=== PATIENT | female | born 1995 | race Caucasian/White ===

== ENCOUNTER 2021-11-06 11:02 | Outpatient (CLI) | payer OTHER, SELFPAY ==
[2021-11-06] VITALS (12 sets, daily range): BP systolic 122–150; BP diastolic 83–119; PULSE 89–115; TEMP 37
[2021-11-06 11:54] LABS: Basophils Absolute Auto 0.1 K/mm3 (0.0-0.1); Basophils Percent Auto 0.5 % (0.2-1.2); Eosinophils Absolute Auto 0.1 K/mm3 (0-0.3); Eosinophils Percent Auto 0.8 % (0-4.4); Hematocrit 39.4 % (37.0-47.0); Hemoglobin 13.2 g/dL (12.0-15.0); Immature Granulocyte Absolute 0.11 K/mm3 (0.00-0.031); Immature Granulocyte Percent A 0.9 % (0-0.5); Lymphocytes Absolute Auto 3.53 K/mm3 (0.9-3.2); Mean Corpuscular HGB Conc 33.5 g/dl (32-36); Mean Corpuscular Hemoglobin 30.8 pg (26-34); Mean Corpuscular Volume 91.8 fl (80-100); Mean Platelet Volume 11.6 fl (7.4-10.4); Monocytes Absolute Auto 0.7 K/mm3 (0.1-0.6); Monocytes Percent Auto 5.4 % (2.6-8.5); Neutrophils Absolute Auto 7.7 K/mm3 (1.3-6.7); Neutrophils Percent Auto 63.4 % (45.5-73.1); Platelet Count Result 257 k/mm3 (150-375); Red Blood Count 4.29 M/mm3 (4.2-5.4); Red Cell Distribution Width 13.2 % (11.5-14.5); White Blood Count 12.2 K/mm3 (4.5-10.0)
[2021-11-06 12:03] LABS: Appearance Urine Slightly Cloudy (Clear); Bilirubin Urine Negative (Negative); Blood Urine 3+ (Negative); Color Urine Yellow (Yellow); Glucose Urine UA Negative (Negative); Ketones Urine Negative (Negative); Leukocyte Esterase Ur 2+ LEU/UL (NEGATIVE); Nitrate Urine Negative (Negative); Protein Urine 1+ mg/dL (Negative); Urobilinogen Urine 0.2 mg/dL (<2.0)
[2021-11-06 12:04] LABS: Alanine Aminotransferase 12 U/L (6-35); Albumin Level 3.4 g/dL (3.5-5.1); Alkaline Phosphatase 165 U/L (38-126); Anion Gap 7 mmol/L (8-16); Aspartate Amino Transferase 19 U/L (14-36); Bilirubin,Total 0.5 mg/dL (0.2-1.3); Blood Urea Nitrogen 14 mg/dL (7-17); Calcium 8.9 mg/dL (8.4-10.2); Carbon Dioxide 16 mmol/L (22-30); Chloride 107 mmol/L (98-107); Estimated Glomerular Filt Rate > 60; Glucose 80 mg/dL (65-110); Potassium 4.1 mmol/L (3.4-5.0); Sodium 130 mmol/L (137-145); Uric Acid 7.1 mg/dL (2.5-7.5)
[2021-11-06 12:06] LABS: Creatinine Urine 151.9 mg/dL; Total Protein Urine Random 15 mg/dL
[2021-11-06 12:10] LABS: Mucus Urine Rare /lpf; Squamous Epithelial Cell Urine Many /hpf (Few); WBC Urine 51-75 /hpf (0-3)
[2021-11-06 12:11] LABS: Add Urine Microscopic? YES
[2021-11-06] MEDS: LABETALOL HCL 100 MG TABLET 200 MG PO (12:31)
== END 2021-11-06 14:20 | disposition home or self-care (01) ==
LOC: ANHOBOP 11:11 → ANHOBPP 11:16
PROVIDERS: PCP Family Medicine; Visit Provider Obstetrics & Gynecology
DX: O13.9 Gestational [pregnancy-induced] hypertension without significant proteinuria, unspecified trimester (principal); Z3A.00 Weeks of gestation of pregnancy not specified
CPT/HCPCS: 36415; 59025; 80053; 81001; 82570; 84156; 84550; 85025; 87086; 87088; 99199; A9270

== ENCOUNTER 2021-11-11 11:39 | Outpatient (RCR) | payer OTHER, SELFPAY ==
[2021-11-08 11:59] VITALS: BP 138/98; PULSE 80
--- NOTE | 2021-11-08 11:59 | PC.NURSE ---
Dr. Flor Jensen was informed of BP's 139/83 and 138/98. Pt denies headache, visual disturbance, epigastric/RUQ pain. 1+ pitting edema in feet and lower legs. DTR's 2+ and no clonus. Pt taking Labetalol 200 mg PO BID- last dose at 0930. Order received to have pt take an additional dose of Labetalol 200 mg as soon as she gets home and to then take every 8 hrs instead of q 12 hrs. Pt scheduled for induction of labor on 11/13/21 when she is 37 wks. Pt informed of these instructions. Pt given signs and symptoms of preeclampsia to watch for and to return to L&D unit if any should occur. Pt verbalizes understanding. Pt is going directly home and will take an additional 200 mg of Labetalol.
--- NOTE | ~2021-11-11 | US_ITS ---
EXAMINATION: US OB limited w BPP DATE: 11/11/2021 13:36 INDICATION: Nonreactive nonstress test, third trimester TECHNIQUE: Real-time pelvic ultrasound was performed. The interpreting radiologist was not present fo r the study. COMPARISON: None. FINDINGS: There is a single living fetus in vertex presentation. The placenta is posterior. heart rate is 130 beats per minute (bpm). The amniotic fluid index is 14.9 cm which is normal (normal range: 7.7 c m to 24.9 cm). Biophysical profile performed by the technologist: breathing (30 sec sustained breathing in 30 minutes): 2 out of 2 movement (3 gross body movements in 30 minutes): 2 out of 2 tone (one episode of ujwsvuz-wkmqahbpb-xwwnzst limb movement): 2 out of 2 Amniotic fluid pocket (2 cm): 2 out of 2 Total score: 8 out of 8 IMPRESSION: 1. Single living fetus in vertex presentation. 2. Biophysical profile 8 out of 8. 3. Normal amniotic fluid index. Reviewed, dictated and finalized at location A.
--- NOTE | 2021-11-11 12:56 | PC.NURSE ---
Dr. Flor Jensen updated on the pt tracing. Order received for pt to have BPP, GRETCHEN and call results.
[2021-11-11 13:10] VITALS: BP 136/89; PULSE 78
--- NOTE | 2021-11-11 13:42 | PC.NURSE ---
Dr. Flor Jensen updated on the pt. BPP and GRETCHEN. Pt okay discharge per Flor Jensen. Pt scheduled for induction on thu.
== END 2021-12-03 10:50 | disposition home or self-care (01) ==
LOC: ANHOBOP 11:39
PROVIDERS: PCP Family Medicine; Visit Provider Obstetrics & Gynecology
DX: O26.899 Other specified pregnancy related conditions, unspecified trimester (principal); R03.0 Elevated blood-pressure reading, without diagnosis of hypertension; Z3A.00 Weeks of gestation of pregnancy not specified
CPT/HCPCS: 59025; 76815; 76819

== ENCOUNTER 2021-11-13 06:03 | Inpatient (IN) | payer OTHER, SELFPAY ==
[2021-11-13] VITALS (199 sets, daily range): BP systolic 113–175; BP diastolic 61–117; PULSE 55–133; TEMP 36.1–36.9; O2SAT 97–100; BMI 33.1
--- NOTE | 2021-11-13 06:31 | PM.IMHP ---
H&P: HPI History of Present Illness Date/Time: 11/13/21 06:31 Chief Complaint: elevated blood pressures at 37 weeks Narrative: this is a 26-year-old female admitted at 37 weeks gestation for induction of labor secondary to worsening blood pressures. PIH labs were within normal limits. She has no headaches or blurred vision however her blood pressures have been steadily climbing. Ten week ultrasound confirmed dates PMFSH Family History Family History Mother History of open heart surgery Heart disease Heart attack High cholesterol Hypertension Father High cholesterol Hypertension Grandparent History of open heart surgery Heart attack Diabetes mellitus Stented coronary artery Social History Social History Substance use: former Spiritual care concerns: No Meds Home Medications and Allergies Home Medications Medication Instructions Recorded Confirmed Type labetalol 200 mg tablet 200 mg PO Q12H #28 tabs 11/06/21 Rx Allergies Allergy/AdvReac Type Severity Reaction Status Date / Time Sulfa (Sulfonamide Allergy Hives Verified 11/12/21 15:57 Antibiotics) Exam Const: General: cooperative and healthy appearing Nutritional Appearance: average body habitus Orientation/consciousness: oriented to person and oriented to time Resp: Effort & Inspection: normal respiratory effort GI: Inspection: normal to inspection : External Female Exam: normal external appearance Speculum Exam - Vagina: normal appearance of the vagina Speculum Exam - Cervix: normal appearance of the cervix Bimanual exam- vagina & uterus: enlarged ( gravid soft uterus. heart tones reassuring) Assessment and Plan Assessment and plan (1) Term : Code(s): Z34.90 - Encounter for supervision of normal , unspecified, unspecified trimester Status: Acute (2) Gestational hypertension: Code(s): O13.9 - Gestational [-induced] hypertension without significant proteinuria, unspecified trimester Status: Acute Plan medical induction of labor. Spontaneous vaginal delivery is expected. She has an epidural candidate
--- NOTE | 2021-11-13 06:54 | LDADM ---
This patient, Taylor Hale, was admitted to Labor/Delivery/Recovery 109 on 11/13/21 at 06:03. Plans for labor, pain management and were discussed with patient. Patient/family oriented to hospital policies and general routines including ID bracelet, bed and alarms, visiting hours, pain management, procedures, bathroom and other care routines, personal items, smoking policy, room service/diet and guest tray routines, security routines, and visiting hours. Patient/Family are encouraged to report perceived risks to care and to ask questions if they do not understand what they are told or what they should do. See OBIX for further documentation.
[2021-11-13 07:06] LABS: Basophils Absolute Auto 0.1 K/mm3 (0.0-0.1); Basophils Percent Auto 0.5 % (0.2-1.2); Eosinophils Absolute Auto 0.1 K/mm3 (0-0.3); Eosinophils Percent Auto 1.2 % (0-4.4); Hematocrit 36.6 % (37.0-47.0); Hemoglobin 12.2 g/dL (12.0-15.0); Immature Granulocyte Absolute 0.13 K/mm3 (0.00-0.031); Immature Granulocyte Percent A 1.2 % (0-0.5); Lymphocytes Absolute Auto 3.36 K/mm3 (0.9-3.2); Lymphocytes Percent Auto 30.2 % (18.3-44.2); Mean Corpuscular HGB Conc 33.3 g/dl (32-36); Mean Corpuscular Hemoglobin 31.3 pg (26-34); Mean Corpuscular Volume 93.8 fl (80-100); Mean Platelet Volume 11.9 fl (7.4-10.4); Monocytes Absolute Auto 0.6 K/mm3 (0.1-0.6); Monocytes Percent Auto 5.1 % (2.6-8.5); Neutrophils Absolute Auto 6.9 K/mm3 (1.3-6.7); Neutrophils Percent Auto 61.8 % (45.5-73.1); Platelet Count Result 233 k/mm3 (150-375); Red Cell Distribution Width 13.4 % (11.5-14.5); White Blood Count 11.1 K/mm3 (4.5-10.0)
[2021-11-13 07:17] LABS: Alanine Aminotransferase 12 U/L (6-35); Albumin Level 3.4 g/dL (3.5-5.1); Alkaline Phosphatase 157 U/L (38-126); Anion Gap 6 mmol/L (8-16); Aspartate Amino Transferase 20 U/L (14-36); Bilirubin,Total 0.2 mg/dL (0.2-1.3); Blood Urea Nitrogen 15 mg/dL (7-17); Calcium 8.6 mg/dL (8.4-10.2); Carbon Dioxide 18 mmol/L (22-30); Chloride 109 mmol/L (98-107); Estimated CRCL calculation 84 ml/min; Estimated Glomerular Filt Rate > 60; Glucose 87 mg/dL (65-110); Potassium 3.8 mmol/L (3.4-5.0); Sodium 133 mmol/L (137-145)
[2021-11-13] MEDS: LACTATED RINGERS 1,000 ML 125 ML IV CONT ×4 (07:20→23:21)
[2021-11-13] MEDS: OXYTOCIN 30 UNITS/NS 500 ML 30 UNITS/500 ML BAG 4 UNITS IV CONT (08:00)
[2021-11-13] MEDS: LABETALOL HCL 100 MG TABLET PO (08:27)
--- NOTE | 2021-11-13 11:31 | PM.OBPNLAB ---
Pain Control Date/time seen: 11/13/21 11:31 Pain control: tolerating well and epidural Comments: bp better Pelvic Exam Dilation (cm): 3 Effacement (%): 90 station: -2 Amniotic membrane status: Ruptured Contractions Monitor mode: Internal Contraction frequency: 3
--- NOTE | 2021-11-13 16:01 | PM.OBPNLAB ---
Pain Control Date/time seen: 11/13/21 16:01 Pain control: tolerating well and epidural Pelvic Exam Dilation (cm): 4 Effacement (%): 90 station: -2 Amniotic membrane status: Ruptured Contractions Monitor mode: Internal Contraction frequency: 3
[2021-11-13] MEDS: LABETALOL HCL 100 MG TABLET 300 MG PO (17:57)
[2021-11-13] MEDS: DEXTROSE 5%/LACTATED RINGERS 1,000 ML 100 ML IV CONT (23:55)
[2021-11-14] VITALS (89 sets, daily range): BP systolic 130–173; BP diastolic 81–101; PULSE 76–135; RESP 16–18; TEMP 36.2–37.3; O2SAT 94–100
--- NOTE | 2021-11-14 02:16 | PM.OBPNLAB ---
Pain Control Date/time seen: 11/14/21 02:16 Comments: The patient has pushed for 2 5hours with no change. Variability is decreased she is offered low-transverse section Pelvic Exam Dilation (cm): 10 Effacement (%): 90 station: -2 Amniotic membrane status: Ruptured Contractions Monitor mode: Internal Contraction frequency: 3
[2021-11-14] MEDS: ceFAZolin 2 GM/D5W 50 ML 2 GM/50 ML BAG IVPB (02:28)
--- NOTE | 2021-11-14 02:35 | WPDANESEPP ---
Anes - Eval Pre Procedure Procedure: Operation Date: 11/14/21 02:30 Proposed Procedures p Section - Hoang Jensen MD Date/Time: 11/14/21 02:35 Surgeon: armando jensen Pre Op Diagnosis: iol Patient Data Age: 26 Gender: F Height: 1.52 m Weight: 77 kg Last Vital Signs Temp 36.8 C 11/13/21 17:20 Pulse 91 11/13/21 23:00 BP 135/68 11/13/21 23:00 Pulse Ox 100 11/14/21 01:54 O2 Del Method Room Air 11/13/21 06:51 Allergies Allergy/AdvReac Type Severity Reaction Status Date / Time Sulfa (Sulfonamide Allergy Hives Verified 11/12/21 15:57 Antibiotics) Home Medications Medication Instructions Recorded Confirmed Type labetalol 200 mg tablet 200 mg PO Q12H #28 tabs 11/06/21 11/13/21 Rx vits 75-iron 28 mg-folic 1 pkg PO DAILY 11/13/21 11/13/21 History acid 800 mcg-omega3 440 mg oral pack Laboratory Tests 11/13/21 11/13/21 11/13/21 06:37 06:37 06:37 WBC 11.1 K/mm3 H K/mm3 (4.5-10.0) RBC 3.90 M/mm3 L M/mm3 (4.2-5.4) Hgb 12.2 g/dL g/dL (12.0-15.0) Hct 36.6 % L % (37.0-47.0) MCV 93.8 fl fl (80-100) MCH 31.3 pg pg (26-34) MCHC 33.3 g/dl g/dl (32-36) RDW 13.4 % % (11.5-14.5) Plt Count 233 k/mm3 k/mm3 (150-375) MPV 11.9 fl H fl (7.4-10.4) Immature Gran % (Auto) 1.2 % H % (0-0.5) Neut % (Auto) 61.8 % % (45.5-73.1) Lymph % (Auto) 30.2 % % (18.3-44.2) [place] % (Auto) 5.1 % % (2.6-8.5) Eos % (Auto) 1.2 % % (0-4.4) Baso % (Auto) 0.5 % % (0.2-1.2) Lymph # (Auto) 3.36 K/mm3 H K/mm3 (0.9-3.2) [place] # (Auto) 0.6 K/mm3 K/mm3 (0.1-0.6) Eos # (Auto) 0.1 K/mm3 K/mm3 (0-0.3) Baso # (Auto) 0.1 K/mm3 K/mm3 (0.0-0.1) Abs Immat Gran (auto) 0.13 K/mm3 H K/mm3 (0.00-0.031) Absolute Neuts (auto) 6.9 K/mm3 H K/mm3 (1.3-6.7) Absolute Nucleated RBC 0.0 K/mm3 K/mm3 (0.0-0.012) Nucleated RBC % 0.0 % % (0.0-0.2) Sodium Potassium Chloride Carbon Dioxide Anion Gap BUN Creatinine Estim Creat Clear Calc Estimated GFR Glucose Calcium Total Bilirubin AST ALT Alkaline Phosphatase Total Protein Albumin RPR Pending Blood Type O Positive Antibody Screen Negative 11/13/21 06:37 WBC RBC Hgb Hct MCV MCH MCHC RDW Plt Count MPV Immature Gran % (Auto) Neut % (Auto) Lymph % (Auto) [place] % (Auto) Eos % (Auto) Baso % (Auto) Lymph # (Auto) [place] # (Auto) Eos # (Auto) Baso # (Auto) Abs Immat Gran (auto) Absolute Neuts (auto) Absolute Nucleated RBC Nucleated RBC % Sodium 133 mmol/L L mmol/L (137-145) Potassium 3.8 mmol/L mmol/L (3.4-5.0) Chloride 109 mmol/L H mmol/L (98-107) Carbon Dioxide 18 mmol/L L mmol/L (22-30) Anion Gap 6 mmol/L L mmol/L (8-16) BUN 15 mg/dL mg/dL (7-17) Creatinine 0.80 mg/dL mg/dL (0.7-1.0) Estim Creat Clear Calc 84 ml/min ml/min Estimated GFR > 60 (59 - ) Glucose 87 mg/dL mg/dL (65-110) Calcium 8.6 mg/dL mg/dL (8.4-10.2) Total Bilirubin 0.2 mg/dL mg/dL (0.2-1.3) AST 20 U/L U/L (14-36) ALT 12 U/L U/L (6-35) Alkaline Phosphatase 157 U/L H U/L (38-126) Total Protein 7.0 g/dL g/dL (6.3-8.2) Albumin 3.4 g/dL L g/dL (3.5-5.1) RPR Blood Type Antibody Screen Patient hx anesthesia problems: none Family hx anesthesia problems: none Results Review: All pre-operative results and documen
--- NOTE | 2021-11-14 03:07 | P.OP_ITS ---
Procedure Note - Detailed Date of Procedure 11/14/21 Pre-op Diagnosis iol/ failure to descend/ intolerance to labor Post-op Diagnosis Same Procedure Performed primary low-transverse section Surgeon Hoang Jensen MD Anesthesia Spinal Indications a 26-year-old female at 37 weeks gestation with gestational hypertension that was admitted for induction of labor. She got to completely dilated 1 was able to push the baby out after 2-1/2 hours. Decision was made for low-transverse section Findings female 5lb 13oz 915minutes respectively P normal-appearing uterus ovaries and tubes Description of Procedure patient is prepped and draped in the normal sterile fashion placed in the supine position. Under excellent spinal anesthetic the abdomen was entered in Pfannenstiel fashion progressive layers of the fascia. The fascia was incised in upward outward fashion bilaterally. Underlying muscles sharply dissected parietal peritoneum elevated kappa clamps and entered by sharp dissection carried this was carried superiorly and inferiorly down the bladder. Bladder blade placed bladder flap formed. Bladder blade returned. A low transverse incision made the head delivered in the YULISSA position. Anterior posterior shoulder delivered spontaneously. Cord clamped x2 and cut and infant passed off the table an excellent cry. Placenta delivered intact manually. Uterus delivered on the abdomen wrapped in moist towel. After assuring no membranes or debris remained in the uterus, the uterus was closed with continuous running 0 Vicryl from lateral edge to lateral edge. This was followed by 2nd imbricating running locking 0 Vicryl from lateral edge to lateral edge. Hemostasis was assured. The uterus returned to the abdomen after inspecting the hysterotomy in cision. Laps were then removed and accounted for. The fascia was then closed with continuous running 0 Vicryl from lateral edge to midline. Irrigation subcutaneous layer and the skin closed with 4-0 Monocryl and glue. QBL was 480cc. All sponge, needle, instrument counts were correct. Mom and baby were doing fine at the time of the dictation Estimated Blood Loss 480 Drains No Packing No Pathology None sent Complications No immediate complications Condition Stable Disposition PACU
[2021-11-14] MEDS: LABETALOL HCL 100 MG TABLET 200 MG PO ×3 (04:44→21:24)
--- NOTE | 2021-11-14 05:29 | SUR.PHASEI ---
Dr. Flor Jensen updated on severe range blood pressure. Initial BP of 166/89 with a 15 min repeat of 170/94. Ordered to administer 200 mg of labetalol PO.
[2021-11-14] MEDS: OXYTOCIN 30 UNITS/NS 500 ML 30 UNITS/500 ML BAG 125 UNITS IV CONT (06:00)
[2021-11-14] MEDS: KETOROLAC 30 MG/ML VIAL (*BKC) IV PUSH (08:11)
[2021-11-14] MEDS: DOCUSATE SODIUM 100 MG CAPSULE PO ×2 (08:12→17:26)
[2021-11-14] MEDS: NIFEdipine 30 MG TAB.ER.24 PO (08:24)
[2021-11-14] MEDS: DEXTROSE 5%/0.45% SOD CHL 1,000 ML 125 ML IV CONT (10:49)
[2021-11-14 10:59] LABS: Rapid Plasma Reagin Non-Reactive (NonReactive)
--- NOTE | 2021-11-14 11:38 | OBPPTRN ---
0643-Patient transferred to post room #288 via stretcher. Support person present. Oriented to unit, room, information board, rooming in, admission packet and security measures. Patient verbalizes understanding.
[2021-11-14] MEDS: HYDROcodone/acetaminophen (*CRX) 5-325 MG TABLET 1 TAB PO (13:12)
[2021-11-14] MEDS: HYDROcodone/acetaminophen (*CRX) 10-325 MG TABLET 1 TAB PO ×2 (17:25→21:25)
[2021-11-14] MEDS: IBUPROFEN 600 MG TABLET PO (17:26)
[2021-11-14] MEDS: SIMETHICONE 80 MG TAB.CHEW PO (17:27)
[2021-11-15] VITALS (9 sets, daily range): BP systolic 113–150; BP diastolic 70–92; PULSE 80–96; RESP 16–18; TEMP 36.6–36.8; O2SAT 95–98
[2021-11-15] MEDS: IBUPROFEN 600 MG TABLET PO ×4 (03:56→22:49)
[2021-11-15] MEDS: HYDROcodone/acetaminophen (*CRX) 10-325 MG TABLET 1 TAB PO ×4 (03:57→23:11)
[2021-11-15 05:35] LABS: Basophils Percent Auto 0.2 % (0.2-1.2); Eosinophils Absolute Auto 0.2 K/mm3 (0-0.3); Eosinophils Percent Auto 0.9 % (0-4.4); Hemoglobin 10.8 g/dL (12.0-15.0); Immature Granulocyte Absolute 0.23 K/mm3 (0.00-0.031); Immature Granulocyte Percent A 1.2 % (0-0.5); Lymphocytes Absolute Auto 2.81 K/mm3 (0.9-3.2); Lymphocytes Percent Auto 15.2 % (18.3-44.2); Mean Corpuscular HGB Conc 33.8 g/dl (32-36); Mean Corpuscular Hemoglobin 31.1 pg (26-34); Mean Corpuscular Volume 92.2 fl (80-100); Mean Platelet Volume 11.5 fl (7.4-10.4); Monocytes Absolute Auto 0.1 K/mm3 (0.1-0.6); Monocytes Percent Auto 0.6 % (2.6-8.5); Neutrophils Absolute Auto 15.1 K/mm3 (1.3-6.7); Neutrophils Percent Auto 81.9 % (45.5-73.1); Platelet Count Result 169 k/mm3 (150-375); Red Blood Count 3.47 M/mm3 (4.2-5.4); Red Cell Distribution Width 13.7 % (11.5-14.5); White Blood Count 18.5 K/mm3 (4.5-10.0)
--- NOTE | 2021-11-15 07:00 | PM.OBPNVD ---
OB - PN: Subj Subjective Date/time seen: 11/15/21 07:00 Patient comments: no complaints, pain well controlled and tolerating diet [place] baby status: doing well OB - PN: Obj Data Labs CBC & Chem 7: 11/15/21 03:55 11/13/21 06:37 Labs: Laboratory Results - last 24 hr 11/13/21 11/15/21 06:37 03:55 WBC 18.5 H RBC 3.47 L Hgb 10.8 L Hct 32.0 L MCV 92.2 MCH 31.1 MCHC 33.8 RDW 13.7 Plt Count 169 MPV 11.5 H Immature Gran % (Auto) 1.2 H Neut % (Auto) 81.9 H Lymph % (Auto) 15.2 L [place] % (Auto) 0.6 L Eos % (Auto) 0.9 Baso % (Auto) 0.2 Lymph # (Auto) 2.81 [place] # (Auto) 0.1 Eos # (Auto) 0.2 Baso # (Auto) 0.0 Abs Immat Gran (auto) 0.23 H Absolute Neuts (auto) 15.1 H Absolute Nucleated RBC 0.0 Nucleated RBC % 0.0 RPR Non-reactive OB - PN A/P Assessment and Plan (1) Gestational hypertension: Code(s): O13.9 - Gestational [-induced] hypertension without significant proteinuria, unspecified trimester Status: Acute (2) Term : Code(s): Z34.90 - Encounter for supervision of normal , unspecified, unspecified trimester Status: Acute Plan day: 1 Time Spent With Patient Time: Total time spent is greater than 50% in coordination of care (as documented) at patient's floor/unit and/or counseling patient: Time with patient: less than 15 minutes
--- NOTE | 2021-11-15 08:04 | WPDANLDNPN2 ---
Anes-Prog Note L&D-Neuraxial Date/Time: 11/15/21 08:04 Patient feedback: Patient satisfied with post-operative pain management.
--- NOTE | 2021-11-15 08:04 | WPDANLDPN2 ---
Anes-Prog Note L&D Date/Time: 11/15/21 08:04 Neuro status: Neuro function grossly intact. Vital Signs: Last Vital Signs Temp 36.8 C 11/15/21 03:40 Pulse 95 11/15/21 03:40 Resp 16 11/15/21 03:40 BP 145/91 H 11/15/21 03:40 Pulse Ox 95 11/15/21 03:40 O2 Del Method Room Air 11/15/21 03:40 Pain score (VAS): 0 I/O: Intake & Output 11/14/21 11/15/21 11/15/21 23:59 07:59 15:59 Intake Total 1869 200 Output Total 1250 1225 Balance 619 -1025 Patient feedback: Patient satisfied with anesthetic care.
--- NOTE | 2021-11-15 08:30 | PC.NURSE ---
PT introductions made and plan of care discussed per post op c section, pain management, bottle feeding, daily care activities. PT and spouse both recipients of such instructions. Instructions given per one to one discussion, mom baby care guide and demonstrations this shift. NO barriers to learning identified at this time and mom verbalized understanding of such care.
[2021-11-15] MEDS: LABETALOL HCL 100 MG TABLET 200 MG PO ×3 (09:19→22:50)
[2021-11-15] MEDS: SIMETHICONE 80 MG TAB.CHEW PO (09:20)
[2021-11-15] MEDS: HYDROcodone/acetaminophen (*CRX) 5-325 MG TABLET 1 TAB PO (09:21)
[2021-11-15] MEDS: DOCUSATE SODIUM 100 MG CAPSULE PO ×2 (09:21→16:49)
[2021-11-15] MEDS: NIFEdipine 30 MG TAB.ER.24 PO (11:20)
[2021-11-16 04:45] VITALS: BP 116/84; PULSE 76; RESP 16; TEMP 36.6; O2SAT 99
[2021-11-16] MEDS: IBUPROFEN 600 MG TABLET PO (04:53)
[2021-11-16] MEDS: HYDROcodone/acetaminophen (*CRX) 5-325 MG TABLET 1 TAB PO ×2 (04:54→10:40)
[2021-11-16 06:49] VITALS: PULSE 76
[2021-11-16] MEDS: LABETALOL HCL 100 MG TABLET 200 MG PO (06:49)
--- NOTE | 2021-11-16 07:32 | PM.OBDSVD ---
DS: Admitting Diagnosis Discharge Date 11/16/21 Admitting Diagnosis intrauterine at term gestational hypertension OB - DS: Summary OB Procedures : None OB Procedures Intrapartum: OB Procedures: : None Peripartum Data Delivery Method: Section Procedures: Procedures Operation Date: 11/14/21 02:30 Actual Procedure Side Surgeon p Section Bilateral Hoang Jensen MD complications: none Status at Discharge Functional status at discharge: independent ambulation Overall status at discharge: patient is progressing back to baseline Time Spent with Patient Time attestation: Total time spent providing and/or coordinating discharge services: Time spent: Less than 30 minutes Exam Const: General: comfortable and no acute distress Resp: Effort & Inspection: normal respiratory effort Auscultation: clear to auscultation bilaterally Cardio: Rate: regular rate GI: Inspection: non-distended GI Palp: Yes Soft to palpation, No Firmness to palpation present (GI), Yes Tenderness to palpation present (GI) (mild tenderness over incision ) and No Guarding due to palpation present (GI) Auscultation: normal bowel sounds Psych: Appearance: grossly normal Mental Status: mental status grossly normal Discharge Plan Discharge Attending physician on discharge: Hoang Key Discharging Clinician: Hoang Key Patient Disposition: Home, Self-Care Activity: may shower, no straining, may drive after 2 weeks and pelvic rest Diet: heart healthy Wound Care Instructions: follow printed instructions Patient Instructions: Antibiotic Form Stand Alone Forms: General Discharge Information Follow-up/Referrals: Hoang Key MD [Physician] - Discharge Medications: New oxycodone-acetaminophen 5-325 mg tablet 1 tablet PO Q6H PRN (Reason: pain) Qty: 30 0RF nifedipine [Procardia XL] 30 mg Tablet Extended Release 24hr 30 mg PO QAM Qty: 30 0RF nifedipine 30 mg tablet extended release 30 mg PO DAILY Qty: 30 0RF ibuprofen 600 mg Tablet 600 mg PO Q6H PRN (Reason: Cramping) Qty: 30 0RF labetalol 100 mg Tablet 200 mg PO Q8HR 30 Days Qty: 180 0RF Continued Daily 28-800-440 mg-mcg-mg Combo Pack 1 pkg PO DAILY Discontinued labetalol 200 mg Tablet 200 mg PO Q12H Qty: 28 0RF Date of admission: 11/13/21 06:03 Primary Care Provider: Abdiaziz,Jn Carrasco Admitting Provider: Hoang Key Attending physician on admission: Hoang Key Condition: Stable
[2021-11-16 08:00] VITALS: BP 117/78; PULSE 88; RESP 16; TEMP 36.6; O2SAT 99
--- NOTE | 2021-11-16 09:51 | PC.NURSE ---
Patient viewed the discharge video Mother & Baby Care, The First Two Weeks . Patient was given the opportunity and encouraged to ask questions. Patient verbalized understanding of information shared and has been given the mother/baby guide for home reference.
[2021-11-16] MEDS: DOCUSATE SODIUM 100 MG CAPSULE PO (10:00)
[2021-11-16] MEDS: NIFEdipine 30 MG TAB.ER.24 PO (10:00)
[2021-11-18 09:27] VITALS: BP 131/87; PULSE 76; RESP 18; TEMP 36.7; O2SAT 99
== END 2021-11-16 13:00 | disposition home or self-care (01) | DRG 540 ==
LOC: ANHOB2 11-16 11:47 → ANHLDR 11-18 10:40 → ANHOB2 11-18 10:40
PROVIDERS: Admitting Provider Obstetrics & Gynecology; PCP Family Medicine; Visit Provider Student in an Organized Health Care Education/Training Program
PROC: 10D00Z1 Extraction of Products of Conception, Low, Open Approach (ICD-10-PCS; CPT 59514; principal; 2021-11-14 02:30)
DX: O13.4 Gestational [pregnancy-induced] hypertension without significant proteinuria, complicating childbirth (principal); Z37.0 Single live birth; Z3A.37 37 weeks gestation of pregnancy; O36.8330 Maternal care for abnormalities of the fetal heart rate or rhythm, third trimester, not applicable or unspecified; O32.4XX0 Maternal care for high head at term, not applicable or unspecified
CPT/HCPCS: 36415; 80053; 85025; 86592; 86850; 86900; 86901; A9270; J0131; J0690; J1885; J2274; J2405; J2590; J2795; J7120; J7121

== ENCOUNTER 2022-11-05 08:26 | Outpatient (RCR) | payer OTHER, SELFPAY ==
--- NOTE | 2022-11-06 10:19 | PC.NURSE ---
Paper documentation exists on this patient due to [employer] downtime on 11/05/22 from 0030 to 1900.
== END 2023-01-05 13:06 | disposition home or self-care (01) ==
LOC: ANHOBOP 08:26
PROVIDERS: PCP Family Medicine; Visit Provider Obstetrics & Gynecology
DX: O36.8130 Decreased fetal movements, third trimester, not applicable or unspecified (principal); Z3A.00 Weeks of gestation of pregnancy not specified
CPT/HCPCS: 59025

== ENCOUNTER 2022-11-29 12:01 | Outpatient (CLI) | payer OTHER, SELFPAY ==
[2022-11-29 12:15] LABS: Hematocrit 36.2 % (37.0-47.0); Hemoglobin 11.8 g/dL (12.0-15.0); Mean Corpuscular HGB Conc 32.6 g/dl (32-36); Mean Corpuscular Hemoglobin 29.7 pg (26-34); Mean Corpuscular Volume 91.2 fl (80-100); Mean Platelet Volume 10.7 fl (7.4-10.4); Platelet Count Result 227 k/mm3 (150-375); Red Blood Count 3.97 M/mm3 (4.2-5.4); Red Cell Distribution Width 14.7 % (11.5-14.5); White Blood Count 9.6 K/mm3 (4.5-10.0)
[2022-12-01 05:38] LABS: Rapid Plasma Reagin Non-Reactive (NonReactive)
== END 2022-11-29 12:02 | disposition home or self-care (01) ==
LOC: ANHLAB 12:03
PROVIDERS: Visit Provider Obstetrics & Gynecology
DX: Z01.818 Encounter for other preprocedural examination (principal)
CPT/HCPCS: 36415; 85027; 86592; 86850; 86900; 86901

== ENCOUNTER 2022-12-01 09:54 | Inpatient (IN) | payer OTHER, SELFPAY ==
--- NOTE | 2022-11-28 10:59 | PM.IMHP ---
H&P: HPI History of Present Illness Date/Time: 11/28/22 10:59 Chief Complaint: repeat section Narrative: this is 27-year-old 2 para 1 whose last menstrual period was early February, EDC is 12/04/2022, confirmed by 7 week ultrasound presents at term for repeat section. Status mildly elevated blood pressures. She had a previous section she has been on labetalol 200mg b.i.d.. She is positive for group B strep. She had a negative 3hour GTT after GCT that was 141. PMFSH Family History Family History Mother History of open heart surgery Heart disease Heart attack High cholesterol Hypertension Father High cholesterol Hypertension Grandparent History of open heart surgery Heart attack Diabetes mellitus Stented coronary artery Social History Social History Smoking status: Never smoker Second hand tobacco smoke exposure: No Substance use: former Spiritual care concerns: No Meds Home Medications and Allergies Home Medications Medication Instructions Recorded Confirmed Type vits 75-iron 28 mg-folic 1 pkg PO DAILY 11/13/21 11/13/21 History acid 800 mcg-omega3 440 mg oral pack labetalol 100 mg tablet 200 mg PO BID 11/07/22 History Allergies Allergy/AdvReac Type Severity Reaction Status Date / Time Sulfa (Sulfonamide Allergy Hives Verified 11/12/21 15:57 Antibiotics) Exam Const: General: cooperative, healthy appearing and comfortable Nutritional Appearance: average body habitus Orientation/consciousness: oriented to person, oriented to place and oriented to time HENMT: Head: normal to inspection Resp: Effort & Inspection: normal respiratory effort Cardio: Rate: regular rate Rhythm: regular rhythm Heart sounds: S1 normal heart sound present and S2 normal heart sound present GI: Inspection: normal to inspection ( Gravid soft uterus) Assessment and Plan Assessment and plan (1) Previous section: Code(s): Z98.891 - History of uterine scar from previous surgery Status: Acute (2) Positive testing for group B Streptococcus: Code(s): B95.1 - Streptococcus, group B, as the cause of diseases classified elsewhere Status: Acute Plan repeat low-transverse section
--- NOTE | 2022-11-28 12:55 | P.PNAN_ITS ---
Anes - Initial Pre Proc Eval Procedure: Operation Date: 12/01/22 12:00 Proposed Procedures p Repeat Section - Hoang Jensen MD Date/Time: 11/28/22 12:55 Surgeon: Hoang Jensen MD Pre Op Diagnosis: Section Patient Data Age: 27 Gender: F Height: Weight: Allergies Allergy/AdvReac Type Severity Reaction Status Date / Time Sulfa (Sulfonamide Allergy Hives Verified 11/12/21 15:57 Antibiotics) Home Medications Medication Instructions Recorded Confirmed Type vits 75-iron 28 mg-folic 1 pkg PO DAILY 11/13/21 11/13/21 History acid 800 mcg-omega3 440 mg oral pack labetalol 100 mg tablet 200 mg PO BID 11/07/22 History hydrocodone 5 mg-acetaminophen 325 1 tablet PO Q4H PRN pain #30 tabs 11/30/22 Rx mg tablet Patient hx anesthesia problems: none Family hx anesthesia problems: none Results Review: All pre-operative results and documents have been reviewed as part of the pre- operative evaluation. [facility] Past Medical History Medical History (Updated 11/28/22 @ 12:56 by Fazal Madrid MD) Gestational hypertension Family History Family History Mother History of open heart surgery Heart disease Heart attack High cholesterol Hypertension Father High cholesterol Hypertension Grandparent History of open heart surgery Heart attack Diabetes mellitus Stented coronary artery Social History Social History Smoking status: Never smoker Second hand tobacco smoke exposure: No Substance use: former Lack of Transportation: No Lack of Food: Never True Current Housing: I Have Housing Concerned About Future Housing: No Difficulty Paying Gas/Electric Bills: No Difficulty Paying for Meds: No Currently Unemployed: No Education: High School Diploma/GED Difficulty w/ Childcare or Family Care: No Spiritual care concerns: No Anes - Eval Final PreProcedure Day of Procedure 11/28/22 12:55 Patient weight: obese Heart: regular rate and rhythm Lungs: clear to auscultation and normal air movement Airway: Mallampati scale class II Neurological: alert and oriented Last oral intake: >/= 8 hours ASA classification: III Emergent: no Anesthetic plan: proceed Anesthesia type and monitoring: regional spinal Results Review: All pre-operative results and documents have been reviewed as part of the pre- operative evaluation. Informed Consent: The patient's anesthetic plan and its attendant risks and benefits were discussed with the patient/family/POA. Questions were solicited and answers provided to the satisfaction of the patient/family/POA.
[2022-12-01] VITALS (45 sets, daily range): BP systolic 106–146; BP diastolic 60–95; PULSE 51–101; RESP 14–22; TEMP 36.2–36.8; O2SAT 94–100; BMI 35.3
--- NOTE | 2022-12-01 06:03 | WPDHPUPDATE1 ---
History and Physical Update Update Date/Time: 12/01/22 06:03 History and Physical has been reviewed, including an updated exam of the patient. There are NO changes in the patient's condition. Risks, benefits, and alternatives have been discussed and questions answered. Patient agrees to proceed with procedure.
[2022-12-01] MEDS: LACTATED RINGERS 1,000 ML 999 ML IV CONT (10:34)
--- NOTE | 2022-12-01 10:40 | LDADM ---
This patient, Taylor Hale, was admitted to Labor/Delivery/Recovery 119 on 12/01/22 at 09:54. Plans for labor, pain management and were discussed with patient. Patient/family oriented to hospital policies and general routines including ID bracelet, bed and alarms, visiting hours, pain management, procedures, bathroom and other care routines, personal items, smoking policy, room service/diet and guest tray routines, security routines, and visiting hours. Patient/Family are encouraged to report perceived risks to care and to ask questions if they do not understand what they are told or what they should do. See OBIX for further documentation.
[2022-12-01] MEDS: LACTATED RINGERS 1,000 ML 125 ML IV CONT (11:32)
[2022-12-01] MEDS: ceFAZolin 2 GM/D5W 50 ML 2 GM/50 ML BAG IVPB (11:55)
--- NOTE | 2022-12-01 12:42 | W.PM.PROC2 ---
Procedure Note - Detailed Date of Procedure 12/01/22 Pre-op Diagnosis Section Post-op Diagnosis Same Procedure Performed Eat low-transverse section Surgeon Hoang Jensen MD Anesthesia Spinal Indications 27-year-old female 2 para 1 term with previous section Findings female 7lb 5oz /normal-appearing female anatomy inside Description of Procedure patient was prepped draped normal sterile fashion placed in supine position. Excellent spinal anesthetic the abdomen was entered in Pfannenstiel fashion progressive layers of fascia. Fascia incised midline carried in upward out fashion bilaterally. Underlying muscles sharply dissected. Parietal peritoneum 0 by cut clamps and by sharp dissection carried superiorly and inferiorly dome of the bladder. Bladder blade placed. Bladder flap formed bladder blade returned. A low-transverse incision made head delivered YULISSA position. Anterior posterior shoulder delivered spontaneously. Cord clamped and was cut and paste the warmer given Apgars of. Placenta delivered intact manually uterus delivered on the abdomen wrapped in moist towel. After assuring membranes or debris remained in uterus, the uterus closed continuous running locking 0 Vicryl from lateral edge to lateral edge. This followed by 2nd imbricating running locking 0 Vicryl from lateral edge to lateral edge. Hemostasis was assured. Ovaries and tubes appeared within normal limits in the hysterotomy incision appeared intact. This was returned to the abdomen. Laps removed and accounted for fascia then closed with continuous running 0 Vicryl from lateral edge to midline bilaterally. Irrigation subcutaneous layer and the skin closed with 4 Monocryl and glue. Blood loss for the procedure was 415cc. All sponge, needle, instrument counts were correct. There were no immediate complications noted Estimated Blood Loss 415 Drains No Packing No Pathology None sent Complications No immediate complications Condition Stable Disposition PACU
[2022-12-01] MEDS: KETOROLAC 30 MG/ML VIAL (*BKC) IV PUSH ×2 (14:21→20:11)
[2022-12-01] MEDS: OXYTOCIN 30 UNITS/NS 500 ML 30 UNITS/500 ML BAG 125 UNITS IV CONT (15:00)
--- NOTE | 2022-12-01 16:10 | PC.NURSE ---
Patient transferred to post room #290 via [id number]. Support person present. Oriented to unit, room, information board, rooming in, admission packet and security measures. Patient verbalizes understanding.
[2022-12-01] MEDS: DEXTROSE 5%/0.45% SOD CHL 1,000 ML 125 ML IV CONT (20:11)
[2022-12-01] MEDS: LABETALOL HCL 100 MG TABLET 200 MG PO (20:25)
[2022-12-01] MEDS: ACETAMINOPHEN 325 MG TABLET 650 MG PO (20:25)
[2022-12-02] MEDS: ACETAMINOPHEN 325 MG TABLET 650 MG PO (03:48)
[2022-12-02] MEDS: KETOROLAC 30 MG/ML VIAL (*BKC) IV PUSH (03:49)
[2022-12-02 03:59] VITALS: BP 123/80; PULSE 81; RESP 16; TEMP 36.3; O2SAT 97
[2022-12-02 04:13] LABS: Basophils Percent Auto 0.4 % (0.2-1.2); Eosinophils Absolute Auto 0.2 K/mm3 (0-0.3); Eosinophils Percent Auto 1.5 % (0-4.4); Hematocrit 32.3 % (37.0-47.0); Hemoglobin 10.5 g/dL (12.0-15.0); Immature Granulocyte Absolute 0.07 K/mm3 (0.00-0.031); Immature Granulocyte Percent A 0.7 % (0-0.5); Lymphocytes Absolute Auto 2.22 K/mm3 (0.9-3.2); Lymphocytes Percent Auto 21.7 % (18.3-44.2); Mean Corpuscular HGB Conc 32.5 g/dl (32-36); Mean Corpuscular Hemoglobin 30.3 pg (26-34); Mean Corpuscular Volume 93.4 fl (80-100); Mean Platelet Volume 11.2 fl (7.4-10.4); Monocytes Absolute Auto 0.3 K/mm3 (0.1-0.6); Monocytes Percent Auto 3.1 % (2.6-8.5); Neutrophils Absolute Auto 7.5 K/mm3 (1.3-6.7); Neutrophils Percent Auto 72.6 % (45.5-73.1); Platelet Count Result 180 k/mm3 (150-375); Red Blood Count 3.46 M/mm3 (4.2-5.4); Red Cell Distribution Width 14.6 % (11.5-14.5); White Blood Count 10.3 K/mm3 (4.5-10.0)
--- NOTE | 2022-12-02 05:40 | PM.DS ---
DS: Admitting Diagnosis Discharge Date 12/04/2022 Admitting Diagnosis / previous section/group B strep /gestational hypertension DS: Discharge Diagnosis Discharge Diagnosis (1) Gestational hypertension: Code(s): O13.9 - Gestational [-induced] hypertension without significant proteinuria, unspecified trimester Status: Acute (2) Positive testing for group B Streptococcus: Code(s): B95.1 - Streptococcus, group B, as the cause of diseases classified elsewhere Status: Acute (3) Previous section: Code(s): Z98.891 - History of uterine scar from previous surgery Status: Acute DS: Summary Hospital Course Reason for hospitalization: patient was admitted for repeat section with elevated blood pressures at term she is positive for group B strep and had previous section Hospital Course: patient underwent an unremarkable repeat low-transverse section hospital course was unremarkable. She was up voiding without difficulty, eating regular diet, ambulating, generally without complaints. Her wound was clean dry and intact Time Spent with Patient Time attestation: Total time spent providing and/or coordinating discharge services: Exam Const: General: cooperative, healthy appearing and comfortable Nutritional Appearance: average body habitus Orientation/consciousness: oriented to person, oriented to place and oriented to time HENMT: Head: normal to inspection Resp: Effort & Inspection: normal respiratory effort Cardio: Rate: regular rate Rhythm: regular rhythm Heart sounds: S1 normal heart sound present and S2 normal heart sound present GI: Inspection: normal to inspection ( fundus firm below ) and incision ( clean dry and intact) DS: Data Data Completed and Pending Labs on day of discharge: Labs from last 24 hours 12/02/22 03:51 WBC 10.3 H RBC 3.46 L Hgb 10.5 L Hct 32.3 L MCV 93.4 MCH 30.3 MCHC 32.5 RDW 14.6 H Plt Count 180 MPV 11.2 H Immature Gran % (Auto) 0.7 H Neut % (Auto) 72.6 Lymph % (Auto) 21.7 [place] % (Auto) 3.1 Eos % (Auto) 1.5 Baso % (Auto) 0.4 Lymph # (Auto) 2.22 [place] # (Auto) 0.3 Eos # (Auto) 0.2 Baso # (Auto) 0.0 Abs Immat Gran (auto) 0.07 H Absolute Neuts (auto) 7.5 H Absolute Nucleated RBC 0.0 Nucleated RBC % 0.0 Discharge Plan Discharge Attending physician on discharge: Hoang Key Discharging Clinician: Hoang Key Patient Disposition: Home, Self-Care Activity: may shower, no straining, may drive after 2 weeks and pelvic rest Diet: heart healthy Wound Care Instructions: follow printed instructions Patient Instructions: Antibiotic Form Stand Alone Forms: General Discharge Information Follow-up/Referrals: Hoang Key MD [Physician] - Discharge Medications: No Action [id number] fum-folic ac-om3 [id number] mg-mcg-mg Combo Pack 1 pkg PO DAILY labetalol 100 mg tablet 200 mg PO BID Date of admission: 12/01/22 09:54 Primary Care Provider: PHYSICIAN,MINE DEVELOPMENT ENGINEER Admitting Provider: Hoang Key Attending physician on admission: Hoang Key Condition: Stable
--- NOTE | 2022-12-02 05:52 | P.PNOB_ITS ---
OB - PN: Subj Subjective Date/time seen: 12/02/22 05:52 Patient comments: no complaints and pain well controlled baby status: doing well OB - PN: Obj Data Labs 12/02/22 03:51 Labs: Laboratory Results - last 24 hr 12/02/22 03:51 WBC 10.3 H RBC 3.46 L Hgb 10.5 L Hct 32.3 L MCV 93.4 MCH 30.3 MCHC 32.5 RDW 14.6 H Plt Count 180 MPV 11.2 H Immature Gran % (Auto) 0.7 H Neut % (Auto) 72.6 Lymph % (Auto) 21.7 [place] % (Auto) 3.1 Eos % (Auto) 1.5 Baso % (Auto) 0.4 Lymph # (Auto) 2.22 [place] # (Auto) 0.3 Eos # (Auto) 0.2 Baso # (Auto) 0.0 Abs Immat Gran (auto) 0.07 H Absolute Neuts (auto) 7.5 H Absolute Nucleated RBC 0.0 Nucleated RBC % 0.0 OB - PN A/P Plan day: 1 Plan: routine care Time Spent With Patient Time: Total time spent is greater than 50% in coordination of care (as documented) at patient's floor/unit and/or counseling patient: Time with patient: less than 15 minutes Exam Const: General: cooperative, healthy appearing and comfortable Nutritional Appearance: average body habitus Orientation/consciousness: oriented to person, oriented to place and oriented to time HENMT: Head: normal to inspection Resp: Effort & Inspection: normal respiratory effort Cardio: Rate: regular rate Rhythm: regular rhythm Heart sounds: S1 n ormal heart sound present and S2 normal heart sound present GI: Inspection: normal to inspection ( fundus firm below the umbilicus) and incision ( was clean dry and intact)
--- NOTE | 2022-12-02 07:50 | WPDANLDNPN2 ---
Anes-Prog Note L&D-Neuraxial Date/Time: 12/02/22 07:50 Neuraxial medications: intrathecal PF morphine Opiod-related complaints: none Patient feedback: Patient satisfied with post-operative pain management.
--- NOTE | 2022-12-02 07:50 | WPDANLDPN2 ---
Anes-Prog Note L&D Date/Time: 12/02/22 07:50 Comfortable throughout: section Neuraxial method: spinal Epidural/Spinal procedure site: clean & non-tender Neuro status: Neuro function grossly intact. Cardiovascular status: normal Respiratory status: normal Airway patency: baseline Mental status: baseline Post-Op hydration status: normal Vital Signs: Last Vital Signs Temp 36.3 C L 12/02/22 03:59 Pulse 81 12/02/22 03:59 Resp 16 12/02/22 03:59 BP 123/80 12/02/22 03:59 Pulse Ox 97 12/02/22 03:59 O2 Del Method Room Air 12/02/22 03:59 Pain score (VAS): 2/10 I/O: Intake & Output 12/01/22 12/01/22 12/02/22 15:59 23:59 07:59 Intake Total 500 1600 Output Total 250 1275 Balance -250 500 325 Post-procedural complaints: none Patient feedback: Patient satisfied with anesthetic care.
[2022-12-02 08:20] VITALS: BP 129/82; PULSE 88; RESP 16; TEMP 36.6; O2SAT 99
[2022-12-02] MEDS: MULTIVIT/MIN/PREN/FOL AC/IRON TABLET 1 TAB PO (08:44)
[2022-12-02] MEDS: DOCUSATE SODIUM 100 MG CAPSULE PO ×2 (08:44→17:53)
[2022-12-02 08:45] VITALS: PULSE 88
[2022-12-02] MEDS: LABETALOL HCL 100 MG TABLET 200 MG PO ×2 (08:45→22:24)
[2022-12-02] MEDS: HYDROcodone/acetaminophen (*CRX) 5-325 MG TABLET 1 TAB PO (08:46)
[2022-12-02 12:17] VITALS: BP 129/87; PULSE 69; RESP 18; TEMP 37.1; O2SAT 99
[2022-12-02] MEDS: IBUPROFEN 600 MG TABLET PO ×2 (12:20→19:39)
[2022-12-02] MEDS: HYDROcodone/acetaminophen (*CRX) 10-325 MG TABLET 1 TAB PO ×3 (12:21→22:24)
[2022-12-02] MEDS: TETANUS,DIPHTHERIA,AC PERTUSSIS ADULT (0.5 ML) BOOSTRIX IM (17:54)
[2022-12-02 22:30] VITALS: BP 132/94; PULSE 90; RESP 18; TEMP 36.8; O2SAT 99
[2022-12-03] MEDS: IBUPROFEN 600 MG TABLET PO (05:35)
[2022-12-03] MEDS: HYDROcodone/acetaminophen (*CRX) 10-325 MG TABLET 1 TAB PO ×4 (05:35→21:11)
--- NOTE | 2022-12-03 05:53 | PM.OBPNVD ---
OB - PN: Subj Subjective Date/time seen: 12/03/22 05:53 Patient comments: no complaints and pain well controlled baby status: doing well and nursing well OB - PN: Obj Data Labs 12/02/22 03:51 OB - PN A/P Plan day: 1 Plan: routine care Time Spent With Patient Time: Total time spent is greater than 50% in coordination of care (as documented) at patient's floor/unit and/or counseling patient: Time with patient: less than 15 minutes Exam Const: General: cooperative, healthy appearing and comfortable Nutritional Appearance: average body habitus Orientation/consciousness: oriented to person, oriented to place and oriented to time Resp: Effort & Inspection: normal respiratory effort Cardio: Rate: regular rate Rhythm: regular rhythm Heart sounds: S1 normal heart sound present and S2 normal heart sound present GI: Inspection: normal to inspection and incision ( wound clean dry and intact)
[2022-12-03 08:30] VITALS: BP 144/88; PULSE 90; RESP 18; TEMP 37.6; O2SAT 98
[2022-12-03] MEDS: DOCUSATE SODIUM 100 MG CAPSULE PO ×2 (08:52→17:16)
[2022-12-03] MEDS: MULTIVIT/MIN/PREN/FOL AC/IRON TABLET 1 TAB PO (08:52)
[2022-12-03 08:53] VITALS: PULSE 90
[2022-12-03] MEDS: LABETALOL HCL 100 MG TABLET 200 MG PO ×2 (08:53→21:11)
[2022-12-03 20:00] VITALS: PULSE 94; RESP 18; O2SAT 100
[2022-12-03 21:11] VITALS: PULSE 93
[2022-12-04] MEDS: IBUPROFEN 600 MG TABLET PO ×2 (01:23→10:41)
[2022-12-04] MEDS: HYDROcodone/acetaminophen (*CRX) 10-325 MG TABLET 1 TAB PO ×2 (01:23→05:12)
--- NOTE | 2022-12-04 05:51 | P.PNOB_ITS ---
OB - PN: Subj Subjective Date/time seen: 12/04/22 05:51 Patient comments: no complaints and pain well controlled baby status: doing well and nursing well OB - PN: Obj Data Labs 12/02/22 03:51 OB - PN A/P Plan day: 2 Plan: routine care, discharge home and follow up 6 weeks Time Spent With Patient Time: Total time spent is greater than 50% in coordination of care (as documented) at patient's floor/unit and/or counseling patient: Time with patient: less than 15 minutes Exam Const: General: cooperative, healthy appearing and comfortable Nutritional Appearance: average body habitus Orientation/consciousness: oriented to person, oriented to place and oriented to time HENMT: Head: normal to inspection Resp: Effort & Inspection: normal respiratory effort Cardio: Rate: regular rate Rhythm: regular rhythm Heart sounds: S1 normal heart sound present and S2 normal heart sound present GI: Inspection: normal to inspection
--- NOTE | 2022-12-04 05:53 | P.PNOB_ITS ---
OB - PN: Subj Subjective Date/time seen: 12/04/22 05:53 Patient comments: no complaints and pain well controlled baby status: doing well OB - PN: Obj Data Labs 12/02/22 03:51 OB - PN A/P Plan day: 2 Plan: routine care, discharge home and follow up 6 weeks Time Spent With Patient Time: Total time spent is greater than 50% in coordination of care (as documented) at patient's floor/unit and/or counseling patient: Time with patient: less than 15 minutes Exam Const: General: cooperative, healthy appearing, comfortable and average body habitus Nutritional Appearance: average body habitus Orientation/co nsciousness: oriented to person, oriented to place and oriented to time HENMT: Head: normal to inspection Resp: Effort & Inspection: normal respiratory effort Cardio: Rate: regular rate Rhythm: regular rhythm Heart sounds: S1 normal heart sound present and S2 normal heart sound present GI: Inspection: normal to inspection ( fundus firm below umbilicus)
[2022-12-04 08:50] VITALS: BP 121/75; PULSE 75; RESP 18; TEMP 37.1; O2SAT 99
[2022-12-04 10:40] VITALS: PULSE 84
[2022-12-04] MEDS: LABETALOL HCL 100 MG TABLET 200 MG PO (10:40)
[2022-12-04] MEDS: MULTIVIT/MIN/PREN/FOL AC/IRON TABLET 1 TAB PO (10:40)
[2022-12-04] MEDS: HYDROcodone/acetaminophen (*CRX) 5-325 MG TABLET 1 TAB PO (10:41)
[2022-12-04] MEDS: DOCUSATE SODIUM 100 MG CAPSULE PO (10:41)
[2022-12-05 14:51] VITALS: BP 140/87; PULSE 78; RESP 18; TEMP 36.8; O2SAT 100
== END 2022-12-04 12:35 | disposition home or self-care (01) | DRG 540 ==
LOC: ANHLDR 10:12 → ANHOB2 15:31
PROVIDERS: Admitting Provider Obstetrics & Gynecology; Visit Provider Obstetrics & Gynecology
PROC: 10D00Z1 Extraction of Products of Conception, Low, Open Approach (ICD-10-PCS; CPT 59514; principal; 2022-12-01 12:00)
DX: O34.211 Maternal care for low transverse scar from previous cesarean delivery (principal); O13.4 Gestational [pregnancy-induced] hypertension without significant proteinuria, complicating childbirth; O99.824 Streptococcus B carrier state complicating childbirth; Z37.0 Single live birth; Z3A.39 39 weeks gestation of pregnancy
CPT/HCPCS: 36415; 85025; 90715; A9270; J0690; J1885; J2274; J2590; J3010; J7120

== ENCOUNTER 2023-04-24 09:49 | Emergency (ER) | payer OTHER, SELFPAY ==
[2023-04-24 10:03] VITALS: BP 114/72; PULSE 90; RESP 16; TEMP 36.4; O2SAT 98
[2023-04-24 10:50] LABS: Strep Group A RT-PCR NOT DETECTED (Negative)
[2023-04-24 11:04] LABS: Influenza A QL RT-PCR Negative (Negative); Influenza B QL RT-PCR Negative (Negative); RSV RNA, RT-PCR Positive (Negative); SARS-CoV-2 RNA PCR Negative (Negative)
--- NOTE | 2023-04-24 11:43 | ED.URI ---
HPI - URI/Sore Throat General Chief Complaint: Upper Respiratory Infection Stated Complaint: Ear Issues, Cough Time Seen by Provider: 04/24/23 10:07 Source: patient Mode of arrival: ambulatory Limitations: no limitations History of Present Illness HPI Narrative: This is a 27-year-old female that presents to the emergency department for cold symptoms present since yesterday. Reports cough, congestion, rhinorrhea, sore throat, and otalgia. Her child has been sick with similar symptoms. Denies fevers. Related Data Home Medications Medication Instructions Recorded Confirmed vits 75-iron 28 mg-folic 1 pkg PO DAILY 11/13/21 12/01/22 acid 800 mcg-omega3 440 mg oral pack labetalol 100 mg tablet 200 mg PO BID 11/07/22 12/01/22 Allergies Allergy/AdvReac Type Severity Reaction Status Date / Time Sulfa (Sulfonamide Allergy Hives Verified 11/12/21 15:57 Antibiotics) Review of Systems Review of Systems: CONSTITUTIONAL: Denies fever ENT: Reports rhinorrhea, congestion, sore throat, and otalgia. RESPIRATORY: Reports cough All systems reviewed & are unremarkable except as noted in HPI and below PMFSH Past Medical History Medical History (Updated 04/24/23 @ 11:44 by Gisel Colbert PA-C) Gestational hypertension Family History Family History Mother History of open heart surgery Heart disease Heart attack High cholesterol Hypertension Father High cholesterol Hypertension Grandparent History of open heart surgery Heart attack Diabetes mellitus Stented coronary artery Social History Social History Smoking status: Never smoker Second hand tobacco smoke exposure: No Substance use: former Lack of Transportation: No Lack of Food: Never True Current Housing: I Have Housing Concerned About Future Housing: No Difficulty Paying Gas/Electric Bills: No Difficulty Paying for Meds: No Currently Unemployed: No Education: High School Diploma/GED Difficulty w/ Childcare or Family Care: No Spiritual care concerns: No Exam Narrative: GENERAL: Well-appearing, well-nourished, and in no acute distress. HEAD: Normocephalic, atraumatic. EYES: EOMI. ENT: Nares clear, no rhinorrhea or epistaxis. Mucous membranes moist. Oropharynx without tonsillar hypertrophy exudate or other lesions. Bilateral TMs pearly sotomayor non-bulging NECK: Supple. No adenopathy or masses. CHEST: Clear to auscultation. No respiratory distress. No wheezes rales or rhonchi HEART: Regular rate and rhythm. No murmur heard. Normal peripheral pulses. EXTREMITIES: Normal range of motion. No edema. SKIN: Warm, dry, no rash. NEURO: No focal deficits. Alert and oriented x3. PSYCH: Normal mood and affect Course Course Emergency Course: patient updated on workup and agrees with plan of care Vital Signs Vital signs: Vital Signs Temperature 97.6 F 04/24/23 10:03 Pulse Rate 90 04/24/23 10:03 Respiratory Rate 16 04/24/23 10:03 Blood Pressure 114/72 04/24/23 10:03 Pulse Oximetry 98 04/24/23 10:03 Oxygen Delivery Room Air 04/24/23 10:03 Temperature 97.6 F 04/24/23 10:03 Pulse Rate 90 04/24/23 10:03 Respiratory Rate 16 04/24/23 10:03 Blood Pressure 114/72 04/24/23 10:03 Pulse Oximetry 98 04/24/23 10:03 Oxygen Delivery Room Air 04/24/23 10:03 MDM - URI/Sore Throat MDM Narrative Medical decision making narrative: patient presents to the emergency department for cold symptoms present since yesterday. She is afebrile and nontoxic appearing. Lungs are clear on exam. RSV screen is positive. Patient was instructed on further care viral infection. She is to follow up with primary provider. She was given warnings to return to the ER Differential Diagnosis Differential diagnosis: Likely upper respiratory infection, croup, otitis media, vir
== END 2023-04-24 11:56 | disposition home or self-care (01) ==
PROVIDERS: Emergency Provider Physician Assistant
DX: J22 Unspecified acute lower respiratory infection (principal); B97.4 Respiratory syncytial virus as the cause of diseases classified elsewhere; Z20.822 Contact with and (suspected) exposure to COVID-19
CPT/HCPCS: 87637; 87651; 99283

== ENCOUNTER 2023-04-26 17:04 | Emergency (ER) | payer OTHER, SELFPAY ==
[2023-04-26 17:15] VITALS: BP 137/100; PULSE 90; RESP 16; TEMP 37.6; O2SAT 100
--- NOTE | 2023-04-26 18:32 | ED.URI ---
HPI - URI/Sore Throat General Chief Complaint: Upper Respiratory Infection Stated Complaint: ears clogged,left side face pain,eyes crusty Time Seen by Provider: 04/26/23 18:32 Source: patient Mode of arrival: ambulatory Limitations: no limitations History of Present Illness HPI Narrative: 27-year-old female presents with complaint of bilateral ear pain for the past week. Reports congestion, cough for 1 week . was diagnosed with RSV at ER, but told at that time that ears were not infected. States continues to have ear pain a burn after taking DayQuil NyQuil cold and Sinus medications. Also reports redness, itching and yellow drainage from both eyes starting yesterday. No vision changes. All systems reviewed and negative except as noted above. Related Data Home Medications Medication Instructions Recorded Confirmed vits 75-iron 28 mg-folic 1 pkg PO DAILY 11/13/21 04/26/23 acid 800 mcg-omega3 440 mg oral pack labetalol 100 mg tablet 200 mg PO BID 11/07/22 04/26/23 norgestimate-ethinyl estradiol 1 tablet PO DAILY 04/26/23 04/26/23 0.18 mg/0.215mg/0.25mg-35 mcg(28)tablet (Tri-Sprintec (28)) Allergies Allergy/AdvReac Type Severity Reaction Status Date / Time Sulfa (Sulfonamide AdvReac Mild Hives Verified 04/26/23 17:53 Antibiotics) Review of Systems Review of Systems: CONSTITUTIONAL: Denies fever, chills, or sweats. EYES: Denies visual changes reports redness, discharge, itching. ENT: reports rhinorrhea, congestion, bilateral ear pain. Denies sore throat CARDIOVASCULAR: Denies chest pain, palpitations, or edema. RESPIRATORY: Reports cough or dyspnea. GASTROINTESTINAL: Denies abdominal pain, nausea, vomiting, or diarrhea. GENITOURINARY: Denies dysuria or hematuria. SKIN: Denies rash or itching. MUSCULOSKELETAL: Denies back pain, joint pain, or myalgia. NEUROLOGIC: Denies headache, numbness, or weakness. PSYCHIATRIC: Denies anxiety or depression. All other systems reviewed are negative, except as documented in HPI. [facility] Past Medical History Medical History (Updated 04/26/23 @ 18:38 by Nina Esteves NP) Gestational hypertension Family History Family History Mother History of open heart surgery Heart disease Heart attack High cholesterol Hypertension Father High cholesterol Hypertension Grandparent History of open heart surgery Heart attack Diabetes mellitus Stented coronary artery Social History Social History Smoking status: Never smoker Second hand tobacco smoke exposure: No Substance use: former Lack of Transportation: No Lack of Food: Never True Current Housing: I Have Housing Concerned About Future Housing: No Difficulty Paying Gas/Electric Bills: No Difficulty Paying for Meds: No Currently Unemployed: No Education: High School Diploma/GED Difficulty w/ Childcare or Family Care: No Spiritual care concerns: No Comments At time of signature, agree with nursing past medical, surgical, social and family history. There is no relevant family history pertinent to the presenting complaint. Exam Narrative: GENERAL: This is a well-nourished, well-developed patient, in no apparent distress. HEAD: normocephalic, atraumatic. EYES: PERRL. Sclera And conjunctiva erythematous bilaterally. Yellow thick drainage noted with crusting to bilateral eyelashes. Vision is grossly intact. EARS: External ears normal, auditory canals clear and without drainage, fluid, bulging, mild erythema to bilateral TMs without perforation. Hearing grossly intact. NOSE: External nose normal with no obvious nasal discharge, nares without redness, no rhinorrhea. THROAT: Mucous membranes moist, posterior pharynx clear. NECK: Neck supple, non-tender without lymphadenopathy, masses or thyromegaly. CARDIOVASCULAR: Regular rate and rhythm with
== END 2023-04-26 18:42 | disposition home or self-care (01) ==
PROVIDERS: Emergency Provider Nurse Practitioner Family
DX: H65.03 Acute serous otitis media, bilateral (principal); H10.33 Unspecified acute conjunctivitis, bilateral
CPT/HCPCS: 99213; G0463

== ENCOUNTER 2024-08-13 14:34 | Emergency (ER) | payer OTHER, SELFPAY ==
--- NOTE | ~2024-08-13 | XR_ITS ---
XR ankle RT min 3V DATE: 08/13/2024 14:57 INDICATION: Right lateral ankle pain after injury 5 days ago TECHNIQUE: 4 views COMPARISON: None FINDINGS: No soft tissue swelling, fracture or dislocation the ankle or disruption of the ankle morti se is detected. IMPRESSION: Negative Reviewed, dictated and finalized at location A. IMPRESSION: Negative
[2024-08-13 14:45] VITALS: BP 162/97; PULSE 95; RESP 16; TEMP 36.2; O2SAT 99
--- NOTE | 2024-08-13 15:22 | ED_ITS ---
HPI - Extremity Injury (Lower) General Chief Complaint: Extremity Injury, Lower Stated Complaint: right ankle pain Time Seen by Provider: 08/13/24 15:10 Source: patient, RN notes reviewed and old records reviewed Mode of arrival: ambulatory Limitations: no limitations History of Present Illness HPI Narrative: Patient presents with complaints of right ankle pain. She reports that she has had pain for about a week after stepping on her child's toy. 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 She has been taking Tylenol with moderate relief. Denies other injury and trauma Related Data Home Medications ?Medication ?Instructions ?Recorded ?Confirmed ?Last Taken ?Type norgestimate-ethinyl estradiol 1 tablet PO DAILY 04/26/23 04/26/23 Unknown History 0.18 mg/0.215mg/0.25mg-35 mcg(28)tablet (Tri-Sprintec (28)) Allergies Allergy/AdvReac Type Severity Reaction Status Date / Time Sulfa (Sulfonamide AdvReac Mild Hives Verified 08/13/24 14:42 Antibiotics) Review of Systems Review of Systems: All systems reviewed & are unremarkable except as noted in HPI and below Constitutional: Constitutional: Reports no additional constitutional complaints ENT: Reports system reviewed and no additional complaints, except as documented Cardiovascular: Cardiovascular: Reports no additional cardiovascular complaints Respiratory: Respiratory: Reports no additional respiratory complaints Gastrointestinal: Gastrointestinal: Reports no additional gastrointestinal complaints Musculoskeletal: Musculoskeletal: Reports no additional musculoskeletal complaints and Reports as per HPI [facility] Past Medical History Medical History (Updated 08/13/24 @ 16:22 by Christine Etienne APRN) Gestational hypertension Family History Family History Mother History of open heart surgery Heart disease Heart attack High cholesterol Hypertension Father High cholesterol Hypertension Grandparent History of open heart surgery Heart attack Diabetes mellitus Stented coronary artery Social History Social History Smoking status: Never smoker Second hand tobacco smoke exposure: No Substance use: former Lack of Transportation: No Lack of Food: Never True Current Housing: I Have Housing Concerned About Future Housing: No Difficulty Paying Gas/Electric Bills: No Difficulty Paying for Meds: No Currently Unemployed: No Education: High School Diploma/GED Difficulty w/ Childcare or Family Care: No Spiritual care concerns: No Comments At the time of my signature, I reviewed and agree with the nursing past medical, surgical, social, and family history. There is no relevant family history pertinent to the patient complaint. Exam Const: General: cooperative, no acute distress, alert and awake Orientation/consciousness: oriented to person, oriented to place and oriented to time HENMT: Head: normal to inspection Resp: Effort & Inspection: normal respiratory effort and able to speak in complete sentences Auscultation: clear to auscultation bilaterally, no crackles, no rales, no rhonchi and no wheezes Cardio: Palpation: normal PMI Rate: regular rate Rhythm: regular rhythm Heart sounds: S1 normal heart sound present and S2 normal heart sound present Neuro: General: oriented to person, oriented to place and oriented to time Cranial nerves: Yes CN's II-XII intact bilaterally Extrem: Right lower extremity: ankle Details: tenderness Location: of the lateral malleolus, no edema and normal ROM Psych: Appearance: grossly normal Thought process: Normal thought process present Insight: Good insight present (Psych) Judgement: Good judgement present (Psych) Course Course Level of Care: Express Care Visit Vital Signs Vital signs: Vital Signs Temperature 97.2 F L 08/13/24 14:45 Pulse Rate 95 08/13/24 14:45 Respiratory Rate 16 08/13/24 14:45 Blood Pressure 162/97 H 08/13/24 14:45 Pulse Oximetry 99 08/13/24 14:45 Oxygen Delivery Room Air 08/13/24 14:45 Temperature 97.2 F L 08/13/24 14:45 Pulse Rate 90 08/13/24 16:25 Respiratory Rate 16 08/13/24 16:25 Blood Pressure 153/94 H 08/13/24 16:25 Pulse Oximetry 100 08/13/24 16:25 Oxygen Delivery Room Air 08/13/24 14:45 Reviewed MDM - Extremity Injury (Lower) MDM Narrative Medical decision making narrative: Reassuring physical exam, negative x-ray. Supportive care measures discussed. Discharge instructions reviewed with patient, as well as provided in writing per nursing staff. The instructions also include specific and strict return/GO TO THE ER as well as f/u information. All questions have been answered, and the patient deny any further questions with discharge and discharge plan. Some parts of this dictation were generated by voice recognition software and may contain typographical and/or grammatical inaccuracies. Differential Diagnosis Differential diagnosis: Likely ankle sprain and strain and ankle fracture Medical Records Attestation: I reviewed the patient's medical records. Imaging Data Attestation: I personally reviewed and interpreted this imaging study as follows: My impression: negative Radiologist's impression: [facility] [address] [place] [address] XRay Report Signed Patient: Taylor Hale : 1995 MR#: [id number] Age: 28 Acct:[id number] Loc: [facility] ADM Date: 08/13/24Attending Dr: Ordering Physician: Christine Etienne FNP Date of Service: 08/13/24 Procedure(s): XR ankle RT min 3V Accession Number(s): [id number] cc: Christine Etienne FNP; TRANSPLANT NURSE PRACTITIONER PHYSICIAN~ XR ankle RT min 3V DATE: 08/13/2024 14:57 INDICATION: Right lateral ankle pain after injury 5 days ago TECHNIQUE: 4 views COMPARISON: None FINDINGS: No soft tissue swelling, fracture or dislocation the ankle or disruption of the ankle mortise is detected. IMPRESSION: Negative Reviewed, dictated and finalized at location A. Please be advised this is a medical document. It is intended for qvry-ms-bkau communication. It is written in medical language and may contain unfamiliar abbreviations or verbiage. Medical documents are intended to carry relevant information, facts as evident, and the clinical opinion of the practitioner at the time of the encounter. This report may have been done utilizing a voice recognition system. Attempts have been made to correct errors. However, there may be uncorrected grammatical, spelling, and recognition errors present. The file time of this note does not necessarily represent the time of service. Dictated By: Berlin Blanchard MD 08/13/24 1610 Signed By: <Electronically signed by Berlin Blanchard MD in OV> 08/13/24 161 Discharge Plan Discharge Clinical Impression: Ankle pain Patient Disposition: Home, Self-Care Condition: Stable Instructions: Antibiotic Form, P.R.I.C.E. Treatment (ED) Additional Instructions: Take 600-800 mg of ibuprofen 3 times daily as needed for pain. Follow-up with primary care provider. Emergency department for new or worse symptoms Patient Language: Vincentian Prescriptions: No Action norgestimate-ethinyl estradiol [Tri-Sprintec (28)] 0.18/0.215/0.25 mg-35 mcg (28) tablet 1 tablet PO DAILY Follow-up/Referrals: PHYSICIAN,TRANSPLANT NURSE PRACTITIONER [Primary Care Provider] - Time of Disposition: 16:22
[2024-08-13 16:25] VITALS: BP 153/94; PULSE 90; RESP 16; O2SAT 100
== END 2024-08-13 16:25 | disposition home or self-care (01) ==
PROVIDERS: Emergency Provider Nurse Practitioner Family
DX: M25.571 Pain in right ankle and joints of right foot (principal)
CPT/HCPCS: 73610; 99213; G0463

== ENCOUNTER 2025-03-03 08:11 | Emergency (ER) | payer OTHER, SELFPAY ==
[2025-03-03 08:17] VITALS: BP 136/91; PULSE 97; RESP 18; TEMP 36.6; O2SAT 100
--- NOTE | 2025-03-03 08:25 | ED.SKABFB ---
HPI - Skin/Abscess/Foreign Bdy General Chief complaint: Skin/Abscess/Foreign Body Stated complaint: itchy bump on back Time Seen by Provider: 03/03/25 08:25 Source: patient, RN notes reviewed and old records reviewed Mode of arrival: ambulatory Limitations: no limitations History of Present Illness HPI narrative: 29 year old female presents to [facility] care with complaints of bite to her left flank area which she noted on Thursday. Patient reports that she had been at park with kids and thinks was bit by some insect. She reports that she did use Neosporin ointment to area and has also applied some Benadryl ointment for the itching and took some Zyrtec.. She states that she is concerned due to surrounding redness and swelling around bite area which is presently scabbing with no vesicle formation or any drainage. complaint: insect bite/sting and lesion Onset (ago): day(s) (2) Location: back (left flank) Severity: mild Treatments prior to arrival: other (Zyrtec, Benadryl ointment and also Neosporin) Related Data Home Medications ?Medication ?Instructions ?Recorded ?Confirmed ?Last Taken ?Type norgestimate-ethinyl estradiol 1 tablet PO DAILY 04/26/23 02/22/25 Unknown History 0.18mg/0.215mg/0.25mg-0.035mg(28)tablet (Tri-Sprintec (28)) labetalol 200 mg tablet mg PO 02/22/25 02/22/25 Unknown History Allergies Allergy/AdvReac Type Severity Reaction Status Date / Time Sulfa (Sulfonamide AdvReac Mild Hives Verified 03/03/25 08:22 Antibiotics) Review of Systems Review of Systems: CONSTITUTIONAL: Denies fever, chills, or sweats. CARDIOVASCULAR: Denies chest pain, palpitations, or edema. RESPIRATORY: Denies cough or dyspnea. GASTROINTESTINAL: Denies abdominal pain, nausea, vomiting SKIN: Reports redness and swelling with raised 0.5 cm center lesion with some scabbing noted Patient denies any purulent drainage from site is itchy has total area of light red irritation and swelling around lesion. Patient reports that she had been at park with kids and thinks it is insect bite of some kind no acute pain to site. MUSCULOSKELETAL: Denies myalgia. NEUROLOGIC: Denies headache, numbness All systems reviewed & are unremarkable except as noted in HPI and below PMFSH Past Medical History Medical History Post-operative pain Positive testing for group B Streptococcus Term Pain during labor Gestational hypertension Surgical History Surgical History Previous section Family History Family History Mother History of open heart surgery Heart disease Heart attack High cholesterol Hypertension Father High cholesterol Hypertension Grandparent History of open heart surgery Heart attack Diabetes mellitus Stented coronary artery Social History Social History Smoking status: Never smoker Second hand tobacco smoke exposure: No Alcohol intake: never Substance use: current Substance use type: marijuana Other substance usage details: once a week, weekends normally Do You Feel Safe in your Home?: Yes Lack of Transportation: No Lack of Food: Never True Current Housing: I Have Housing Concerned About Future Housing: No Difficulty Paying Gas/Electric Bills: No Difficulty Paying for Meds: No Currently Unemployed: No Education: High School Diploma/GED Difficulty w/ Childcare or Family Care: No Spiritual care concerns: No Comments At time of signature, agree with nursing past medical, surgical, social and family history. There is no relevant family history pertinent to the presenting complaint Exam Narrative: GENERAL: Well-appearing, well-nourished, and in no acute distress. HEAD: Normocephalic, atraumatic. EYES: PERRLA and EOMI. ENT: Nares clear, no rhinorrhea or epistaxis. Mucous membranes moist. NECK: Supple.no lymphadenopathy CHEST: Clear to auscultation. No respiratory distress. SAO2 100% on room air HEART: Regular rate and rhythm. No murmur heard. Normal peripheral pulses. ABDOMEN: Soft, nontender, nondistended, normal active bowel sounds. EXTREMITIES: Normal range of motion. No edema. SKIN: Warm, dry. 0.5cm central lesion with some scabbing with total area of redness 9cm X5cm around lesion to the left flank area, no drainage noted, is itchy. Patient reports no fevers minimal warmth to skin area around lesion. NEURO: No focal deficits. Alert and oriented x3. Course Course Emergency Course: Patient is aware of diagnosis, understands and agrees to treatment plan. Anticipatory guidance given. Patient agrees to follow-up as directed and is aware of reasons to seek care at the emergency department. Portions of this record may have been created with voice recognition software Level of Care: Express Care Visit Vital Signs Vital signs: Vital Signs Temperature 36.6 C 03/03/25 08:17 Pulse Rate 97 03/03/25 08:17 Respiratory Rate 18 03/03/25 08:17 Blood Pressure 136/91 H 03/03/25 08:17 Pulse Oximetry 100 03/03/25 08:17 Oxygen Delivery Room Air 03/03/25 08:17 Temperature 36.6 C 03/03/25 08:17 Pulse Rate 97 03/03/25 08:17 Respiratory Rate 18 03/03/25 08:17 Blood Pressure 136/91 H 03/03/25 08:17 Pulse Oximetry 100 03/03/25 08:17 Oxygen Delivery Room Air 03/03/25 08:17 Reviewed MDM - Skin/Abscess/Foreign Bdy MDM Narrative Medical decision making narrative: Does not appear at this time to be erythema multiforme, bullous, SJS, TEN; no evidence at this time to suggest RMSF, endocarditis or Lyme disease; patient looks well, nontoxic and is tolerating oral intake; no neurologic signs or symptoms; no headache, photophobia or neck pain; afebrile; appropriate for initial outpatient treatment; discussed the importance of follow-up, patient agrees. Patient does not have history of penetrating trauma, laceration, blunt trauma, recent surgery, immunosuppression, malignancy, obesity, alcoholism, corticosteroid use. Question cellulitis, necrotizing soft tissue infection, abscess. Differential Diagnosis Differential diagnosis: Likely abscess of skin or subcutaneous tissue, cellulitis, insect bites and contact dermatitis Medical Records Attestation: I reviewed the patient's medical records. Critical Care Time Critical Care Time Critical Care Time: No Discharge Plan Discharge Clinical Impression: Insect bite of flank with local reaction Patient Disposition: Home Condition: Stable Instructions: Antibiotic Form, Insect Bite or Sting (ED) Additional Instructions: Cleanse area daily with liquid Dial soap x2 daily rinse and apply mupirocin ointment x2 times daily watch for increasing infection--redness, swelling, drainage Tylenol or ibuprofen for any discomfort or pain/ fevers package direction follow up with PCP in 7-10 days for a wound check recheck if develop fever, chills, increasing symptom Go to the ER if your symptoms become worse of if ANY new symptoms develop Zyrtec daily times 10 days, Pepcid 20 mg daily x7 days Medrol Dosepak take as prescribed If your symptoms persist, change or worsen significantly before you can contact your personal physician then please, without delay, go to the emergency department for further evaluation. Follow-up with PCP in 7-10 days or sooner if needed Follow up with PCP soon in regards to your blood pressure which is elevated above threshold for referral. Blood pressure above 120/80 may indicate pre-hypertension. 136/91 Benadryl 25 -50 mg every 6 hours as needed for itching, can't drive while taking medication or operate machinery can cause drowsiness Patient Language: Welsh Prescriptions: New mupirocin [Centany] 2 % ointment 1 applic topical BID Qty: 22 0RF Rx Instructions: apply to lesion on back famotidine [Pepcid] 20 mg tablet 20 mg PO DAILY Qty: 10 0RF Rx Instructions: take daily for 10 days methylprednisolone [Medrol (Karthikeyan)] 4 mg tablets,dose pack See Rx Instructions .ROUTE .COMPLEX Qty: 21 0RF Rx Instructions: orally per package directions take all of this medication as prescribed No Action norgestimate-ethinyl estradiol [Tri-Sprintec (28)] 0.18/0.215/0.25 mg-35 mcg (28) tablet 1 tablet PO DAILY labetalol 200 mg tablet PO albuterol sulfate [Ventolin HFA] 90 mcg/actuation HFA aerosol inhaler 1 inh inhalation Q4H PRN (Reason: shortness of breath or wheezing) Qty: 6.7 1RF betamethasone dipropionate 0.05 % cream 1 applic topical BID PRN (Reason: itching) Qty: 15 0RF Follow-up/Referrals: Kiran Heller MD [Primary Care Provider, Family Practice] Time of Disposition: 08:44 Quality Jerad Coma Scale Eyes: Open Verbal: Oriented and Alert Motor: Follows Commands [place] Coma Total Score: 15
== END 2025-03-03 08:52 | disposition home or self-care (01) ==
PROVIDERS: Emergency Provider Registered Nurse; PCP Family Medicine
DX: S30.86AA Insect bite (nonvenomous) of flank, initial encounter (principal); W57.XXXA Bitten or stung by nonvenomous insect and other nonvenomous arthropods, initial encounter; F12.90 Cannabis use, unspecified, uncomplicated
CPT/HCPCS: 99213; G0463

== ENCOUNTER 2025-03-17 09:33 | Outpatient (CLI) | payer OTHER, SELFPAY ==
--- OUTSIDE RECORDS SUMMARY | 2025-03-17 09:45 | XMS_ITS | Encounter Summary ---
Author Organization [facility] Care Team Providers Care Bleacher Lard Name Role Phone Jn Freed MD Primary Care Provider [phone]- [phone] Encounter Details Date Type Department Care Team (Latest Contact Info) Description 04/07/2018 Orders Only [facility] Provider, MD Samuel [address] [place] [id number] Social History Tobacco Use Types Packs/Day Years Used Date Smoking Tobacco: Never Assessed Comments Unknown Sex and Gender Information Value Date Recorded Sex Assigned at Not on file Legal Sex Female 11:31 PM DESTINATION SPECIALIST Gender Identity Not on file Sexual Orientation Not on file documented as of this encounter Plan of Treatment Not on file documented as of this encounter Procedures Procedure Name Priority Date/Time Associated Diagnosis Comments SCAN - LABS 04/07/2018 12:00 AM DESTINATION SPECIALIST documented in this encounter Results * SCAN - LABS (04/07/2018 12:00 AM DESTINATION SPECIALIST) Narrative 04/07/2018 12:00 AM DESTINATION SPECIALIST Ordered by an unspecified provider. Historical Provider Final Res ult documented in this encounter Visit Diagnoses Not on filedocumented in this encounter Care Teams Bleacher Lard Relationship Specialty Start Date End Date Jn Freed MD [address] [place] [id number] PCP - General Family Medicine 12/06/18 documented as of this encounter
--- OUTSIDE RECORDS SUMMARY | 2025-03-17 09:45 | XMS_ITS | Clinical Summary ---
Author Organization [facility] Address [address] [place] [id number] Care Team Providers Care Firewall Administrator Name Role Phone Jn Freed MD Primary Care Provider [phone]- [phone] Active Problems Problem Noted Date Diagnosed Date Chest pain 12/28/2009 Immunizations Immunization Administration Dates Next Due HPV9 12/06/2018 Social History Tobacco Use Types Packs/Day Years Used Date Smoking Tobacco: Never Assessed Personal Safety Answer Date Recorded Getting School Help Needed Not on file 08/07 Comments Unknown Sex and Gender Information Value Date Recorded Sex Assigned at Not on file Legal Sex Female 11:31 PM HABILITATION TRAINING SPECIALIST Gender Identity Not on file Sexual Orientation Not on file Last Filed Vital Signs Vital Sign Reading Time Taken Comments Blood Pressure 112/64 05/06/2018 10:00 AM HABILITATION TRAINING SPECIALIST Pulse 100 02/27/2017 10:14 PM CDT Temperature 37 C (98.6 F) 02/27/2017 10:14 PM CDT Respiratory Rate - - Oxygen Saturation 99% 02/27/2017 10:14 PM CDT Inhaled Oxygen Concentration - - Weight 61.2 kg (135 lb) 05/06/2018 10:00 AM HABILITATION TRAINING SPECIALIST Height 154.9 cm (5' 1) 05/06/2018 10:00 AM HABILITATION TRAINING SPECIALIST Body Mass Index 25.51 05/06/2018 10:00 AM HABILITATION TRAINING SPECIALIST Plan of Treatment Not on file Insurance [facility] Care Teams Firewall Administrator Relationship Specialty Start Date End Date Jn Freed MD [address] [place] [address] PCP - General Family Medicine 12/06/18
--- OUTSIDE RECORDS SUMMARY | 2025-03-17 09:45 | XMS_ITS | Clinical Summary ---
Author Organization [facility] Address [address] [place] [address] Care Team Providers Care Finished Cloth Examiner Name Role Phone Jn Freed MD Primary Care Provider Unav ailable Medications TRI-SPRINTEC 0.18/0.215/0.25 MG-35 MCG tablet Take 1 tablet by mouth daily. 04/29/2020 Active VENTOLIN HFA 108 (90 Base) MCG/ACT inhalerIndicatio ns:Asthma, unspecified asthma severity, unspecified whether complicated, unspecified whether persistent ([facility]) INHALE 1 TO 2 PUFFS BY MOUTH EVERY 4 TO 6 HOURS NEEDED 18 g 3 04/11/2021 Active Active Problems Problem Noted Date Diagnosed Date Chest pain 12/28/2009 Near syncope Heart palpitations Murmur Family History Medical History Relation Comments No Known Problems Father IA Maternal Grandfather IA Maternal Grandmother CABG Mother IA Mother Stent Cardiac Paternal Grandmother Relation Status Comments Father Alive Maternal Grandfather Maternal Grandmother Mother Alive Paternal Grandmother Alive Social History Tobacco Use Types Packs/Day Years Used Date Smoking Tobacco: Never Smokeless Tobacco: Never Alcohol Use Standard Drinks/Week Comments Yes 0 (1 standard drink = 0.6 oz pur e alcohol) occasional Comments No Sex and Gender Information Value Date Recorded Sex Assigned at Not on file Legal Sex Female 11:42 PM CDT Gender Identity Not on file Sexual Orientation Not on file Last Filed Vital Signs Vital Sign Reading Time Taken Comments Blood Pressure 100/60 06/26/2020 11:11 AM FRONT LINE SUPERVISOR Pulse 91 06/26/2020 11:11 AM FRONT LINE SUPERVISOR Temperature 36.4 C (97.6 F) 03/23/2019 11:47 PM CDT Respiratory Rate 18 03/24/2019 1:19 AM CDT Oxygen Saturation 100% 06/26/2020 11:11 AM FRONT LINE SUPERVISOR Inhaled Oxygen Concentration - - Weight 58.5 kg (129 lb) 06/26/2020 11:11 AM FRONT LINE SUPERVISOR Height 152.4 cm (5') 06/26/2020 11:11 AM FRONT LINE SUPERVISOR Body Mass Index 25.19 06/26/2020 11:11 AM FRONT LINE SUPERVISOR Plan of Treatment Health Maintenance Due Date Last Done Comments Cervical Cancer Screening Pap Smear (Age 30 to 64) Every 3 Years 1994 Annual Physical 1997 Hepatitis C 2012 DTaP, Tdap and Td Vaccines (1 - Tdap) 2013 Hepatitis B Vaccines (1 of 3 - 19+ 3-dose series) 2013 HPV Vaccines (2 - 3-dose series) 01/03/2019 12/06/2018 Cervical Cancer Screening Pap with HPV Testing (Age 30 to 64) Every 5 Years 2024 11/01/2020, 04/07/2018, 09/22/2017, Additional history exists Cervical Cancer Screening with HPV 2024 COVID-19 Vaccine ( season) 2025 Influenza Adult (#1) 2025 Hepatitis A Vaccines Aged Out No long er eligible based on patient's age to complete this topic Meningococcal B Vaccine Aged Out No l onger eligible based on patient's age to complete this topic Meningococcal Vaccine Aged Out No jose luis matthias eligible based on patient's age to complete this topic Pneumococcal Vaccine: Pediatrics (0 to 5 Years) and At-Risk Patients (6 to 49 Years) Aged Out No longer eligible based on patient's age to complete this topic RSV Immunizations Under 20 Months Aged Out No longer eligible based on patient's age to complete this topic Procedures Procedure Name Priority Date/Time Associated Diagnosis Comments OUTSIDE CYTOPATH CERV/VAG INTERPRET (PAP) 11/01/2020 from Last 3 Months or Most Recently Relevant to Health Maintenance Results * OUTSIDE CYTOPATH VAG/CERV PAP WITH HPV (11/01/2020) 11/01/2020 Narrative 11/01/2020 Ordered by an unspecified provider. us Documents Scanned SCANNING Final Result from Last 3 Months or Most Recently Relevant to Health Maintenance Insurance [employer] Care Teams Finished Cloth Examiner Relationship Specialty Start Date End Date Jn Freed MD PCP - General FAMILY PRACTICE 03/23/19
[2025-03-17 10:35] LABS: Hematocrit 40.2 % (37.0-47.0); Hemoglobin 12.8 g/dL (12.0-15.0); Immature Granulocyte Percent A 0.2 % (0-0.5); Lymphocytes Absolute Auto 3.72 K/mm3 (0.9-3.2); Mean Corpuscular HGB Conc 31.8 g/dl (32-36); Mean Corpuscular Hemoglobin 29.3 pg (26-34); Mean Corpuscular Volume 92.0 fl (80-100); Nucleated Red Blood Cells Absolute Auto 0.000 K/mm3 (0.0-0.012); Nucleated Red Blood Cells Perc 0.0 % (0.0-0.2); Platelet Count Result 325 k/mm3 (150-375); Red Blood Count 4.37 M/mm3 (4.2-5.4); White Blood Count 9.1 K/mm3 (4.5-10.0)
[2025-03-17 10:50] LABS: Hemoglobin A1C 5.1 % (<5.7)
[2025-03-17 10:58] LABS: Alanine Aminotransferase 22 U/L (6-35); Albumin Level 4.2 g/dL (3.5-5.1); Alkaline Phosphatase 70 U/L (38-126); Anion Gap 9 mmol/L (4-12); Aspartate Amino Transferase 22 U/L (14-36); Bilirubin,Total 0.8 mg/dL (0.2-1.3); Blood Urea Nitrogen 14 mg/dL (7-17); Calcium 9.3 mg/dL (8.4-10.2); Carbon Dioxide 22 mmol/L (22-30); Chloride 107 mmol/L (98-107); Cholesterol 292 mg/dL (0-200); Estimated Glomerular Filt Rate > 60; Glucose 91 mg/dL (65-110); HDL Direct 63 mg/dL; Potassium 4.0 mmol/L (3.4-5.0); Sodium 138 mmol/L (137-145); Total Protein 7.4 g/dL (6.3-8.2); Triglycerides 245 mg/dL (<150)
[2025-03-17 11:58] LABS: Thyroid Stimulating Hormone 3.100 uIU/mL (0.465-4.680)
== END 2025-03-17 09:34 | disposition home or self-care (01) ==
LOC: ANHLAB 09:34
PROVIDERS: PCP Family Medicine
DX: Z13.29 Encounter for screening for other suspected endocrine disorder (principal); Z13.220 Encounter for screening for lipoid disorders; Z83.438 Family history of other disorder of lipoprotein metabolism and other lipidemia; Z13.0 Encounter for screening for diseases of the blood and blood-forming organs and certain disorders involving the immune mechanism; Z83.49 Family history of other endocrine, nutritional and metabolic diseases; Z13.1 Encounter for screening for diabetes mellitus; E55.9 Vitamin D deficiency, unspecified
CPT/HCPCS: 36415; 80053; 80061; 82306; 83036; 83695; 84443; 85025; 86376

== ENCOUNTER 2025-04-28 08:36 | Outpatient (CLI) | payer OTHER, SELFPAY ==
[2025-04-28 10:04] LABS: Alanine Aminotransferase 25 U/L (6-35); Albumin Level 4.3 g/dL (3.5-5.1); Alkaline Phosphatase 67 U/L (38-126); Aspartate Amino Transferase 28 U/L (14-36); Bilirubin,Total 1.1 mg/dL (0.2-1.3); Cholesterol 236 mg/dL (0-200); Creatine Kinase 51 U/L (30-135); HDL Direct 65 mg/dL; Total Protein 7.6 g/dL (6.3-8.2); Triglycerides 186 mg/dL (<150)
== END 2025-04-28 08:37 | disposition home or self-care (01) ==
LOC: ANHLAB 08:37
PROVIDERS: PCP Family Medicine
DX: E78.41 Elevated Lipoprotein(a) (principal); Z79.899 Other long term (current) drug therapy
CPT/HCPCS: 36415; 80061; 80076; 82550